=== PATIENT | male | born 1995 | race African-American/Black ===

== ENCOUNTER 2016-12-30 11:50 | Emergency (ER) | payer SELFPAY ==
--- NOTE | ~2016-12-30 | ER ---
PATIENT'S NAME: SWATI [facility] AGE: 21 Y [address] ROOM: [place] [address] LOCATION: [facility] ADMIT DATE: 12/30/2016 ER/Outpatient Report DISCHARGE DATE: 12/30/2016 FAMILY PHYSICIAN: PHYSICIAN, NO ATTENDING PHYSICIAN: Vince Moreno TIME OF ARRIVAL: 12:05. TIME OF EXAMINATION: 12:05. CHIEF COMPLAINT: Chest congestion. HISTORY OF PRESENT ILLNESS: The patient states he has been sick for the past three days. He has had cough, runny nose, chills, sore throat, and pain in his chest when he takes a deep breath. He denies having any abdominal pain. ALLERGIES: SEASONAL ALLERGIES. NO KNOWN MEDICATION ALLERGIES. MEDICATIONS: Medications are on his chart and reviewed by me. PAST MEDICAL HISTORY: Helicobacter pylori. PAST SURGERIES: None. SOCIAL HISTORY: The patient states that he smokes half pack per day, and has for the past two years. He does drink alcohol every other day. He denies use of illicit drugs. REVIEW OF SYSTEMS: All negative other than those mentioned in the history of present illness. PHYSICAL EXAMINATION: VITAL SIGNS: Weight is 150 pounds. Blood pressure of 127/71, pulse of 100, respirations of 20, temperature of 97.2, and O2 saturation of 96% on room air. [place] Coma Scale is 15. GENERAL: He is awake, alert, and oriented x4. [facility] 21 [facility] [address] ROOM: [place] [address] LOCATION: [facility] ADMIT DATE: 12/30/2016 ER/Outpatient Report DISCHARGE DATE: 12/30/2016 FAMILY PHYSICIAN: PHYSICIAN, NO ATTENDING PHYSICIAN: Vince Moreno SKIN: [place], warm, and dry. EARS: TMs (tympanic membranes) are dull. Fluid is noted in the right. NOSE: Nasal is boggy and reddened. MOUTH: Oropharynx is red posteriorly. No exudate is noted. NECK: Supple. No lymphadenopathy. LUNGS: Respirations are even and nonlabored. Lung sounds are clear throughout. HEART: Regular rate and rhythm. IMPRESSION: Sinusitis. PLAN: Home, rest. Fluids, Tylenol or ibuprofen as needed for fever or discomfort. Bactrim DS prescribed. If symptoms persist or worsen, he is to follow up with the primary provider in the next two to three days or return to the Emergency Room. He verbalized understanding. HARSHA ARRIAGA APRN FOR DO SANJANA GOMEZ/liz /[id number] d: 12/30/162055 t: 01/09/171915, OUTPATIENT REPORT
== END 2016-12-30 12:15 | disposition disaster alternative care site (69) ==
LOC: GMED 11:50
DX: J32.9 Chronic sinusitis, unspecified (principal); F17.210 Nicotine dependence, cigarettes, uncomplicated